=== PATIENT | male | born 1965 | race Caucasian/White ===

== ENCOUNTER 2016-02-27 23:18 | Emergency (ER) | payer OTHER ==
[~2016-02-27] VITALS: Ht 175.3 cm; Wt 63.5 kg
--- NOTE | ~2016-02-27 | EKG ---
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: [id number] : 1965 Requested By: Mor Abraham Order Number: [id number] MD: Kevin Bnauelos Measurements Intervals [place] Rate: 114 P: 25 PA: 147 QRS: -40 QRSD: 80 T: 38 QT: 299 QTc: 412 Interpretive Statements Sinus tachycardia Left axis deviation Abnormal R-wave progression, late transition ST elev, probable normal early repol pattern Electronically Signed On 02-28-2016 8:06:09 ELECTRONIC MUSICAL INSTRUMENT REPAIRER by Kevin Banuelos [email or web address] <ELECTRONICALLY SIGNED> By: Kevin Banuelos MD 02/28/16 0806 2325 24 Kevin Banuelos MD /[email or web address]
[~2016-02-27 23:18] MED LIST: ACCUNEB SO1.25 MG/1 INH; ASPIR 8181 MG PO; COZAAR 50 MG TA50 M1 PO; COZAAR 50 MG TA50 M2 PO; DETROL LA4 MG PO; FLOMAX0.4 MG PO; KEPPRA 500 MG500 M1 PO; KEPPRA1000 MG PO; LEVEMIR SUBQ; LEVOTHYROXIN0.112 M1 PO; LIPITOR 20 MG T20 M1 PO; LIPITOR10 MG PO; NEURONTIN 300300 M1 PO; NOVOLIN N100 UNIT/3 SUBQ; NOVOLOG100 UNIT/1 SUBQ; OMEPRAZOLE 20 M20 M1 PO; OMEPRAZOLE20 M2 PO; PREDNISONE 20 M20 MG PO; TESSALON PERLE100 MG PO; TOFRANIL50 MG PO
[2016-02-28] MEDS ORDERED: IMIPRAMINE HCL50 M2 PO (00:50)
[2016-02-28] MEDS ORDERED: LEVETIRACETAM1000 MG PO (00:50)
[2016-02-28] MEDS ORDERED: GLUCOPHAGE XR500 MG PO (00:50)
[2016-02-28] MEDS ORDERED: TOLTERODINE TART4 MG PO (00:50)
[2016-02-28] MEDS ORDERED: OMEPRAZOLE 20 M20 M1 PO (00:50)
[2016-02-28] MEDS ORDERED: XALATAN2.5 ML OPHTHALMIC (00:51)
[2016-02-28 00:54] LABS: APTT 27.2 Seconds (24.5-32.8); PROTIME 10.8 Seconds (9.3-11.4)
[2016-02-28 00:59] LABS: ANION GAP 9 mmol/L (7-16); BUN 21 mg/dL (7-18); CHLORIDE 101 mmol/L (98-107); CO2 31 mmol/L (21-32); CREATININE 1.3 mg/dL (0.6-1.3); GLUCOSE 118 mg/dL (70-99); POTASSIUM 4.7 mmol/L (3.5-5.1); SODIUM 141 mmol/L (136-145)
[2016-02-28 01:07] LABS: ALBUMIN 3.8 g/dL (3.4-5.0); ALKALINE PHOSPHATASE 96 U/L (46-116); MAGNESIUM 1.2 mg/dL (1.8-2.4); SGOT 26 U/L (15-37); SGPT 29 U/L (30-65); TOTAL BILIRUBIN 0.3 mg/dL (<0.1-1.0); TOTAL PROTEIN 7.6 g/dL (6.4-8.2); TROPONIN-I < 0.04 ng/mL (<0.04-0.07)
[2016-02-28 01:15] LABS: ABSOLUTE NEUTROPHILS 5.7 thou/uL (1.4-8.2); EOSINOPHILS 0.1 % (0.0-3.0); HEMOGLOBIN 14.8 gm/dL (14.0-18.0); LYMPHOCYTES 17.7 % (24.0-44.0); MCH 29.8 pg (26.0-34.0); MCHC 32.9 % (28.0-37.0); MCV 90.6 fL (80.0-100.0); MONOCYTES 7.8 % (1.0-8.0); PLATELET COUNT 162 thou/uL (150-400); POLYS 73.4 % (36.0-66.0); RBC 4.96 mil/uL (4.50-6.00); RDW 12.7 % (10.5-14.5); WBC 7.7 thou/uL (4.0-11.0)
[2016-02-28 01:31] LABS: MANUAL DIFF NO
[2016-02-28] MEDS ORDERED: ATIVAN0.5 MG PO (01:59)
[2016-02-28] MEDS ORDERED: MAG-OXIDE400 MG PO (01:59)
[2016-02-28 05:21] LABS: LARGE PLATELETS OCCASIONAL
== END 2016-02-28 04:51 | disposition home or self-care (01) ==
LOC: ER 23:18
PROVIDERS: Emergency Medicine
DX: R20.2 Paresthesia of skin (principal); F41.9 Anxiety disorder, unspecified; E83.42 Hypomagnesemia; E11.9 Type 2 diabetes mellitus without complications; E78.5 Hyperlipidemia, unspecified; Z86.73 Personal history of transient ischemic attack (TIA), and cerebral infarction without residual deficits

== ENCOUNTER 2016-07-03 16:47 | Emergency (ER) | payer OTHER ==
[~2016-07-03] VITALS: Ht 175.3 cm; Wt 63.5 kg
[~2016-07-03 16:47] MED LIST changes: +ATIVAN0.5 MG PO; +GLUCOPHAGE XR500 MG PO; +IMIPRAMINE HCL50 M2 PO; +LEVETIRACETAM1000 MG PO; +MAG-OXIDE400 MG PO; +TOLTERODINE TART4 MG PO; +XALATAN2.5 ML OPHTHALMIC
[2016-07-03 17:50] LABS: URINE BILIRUBIN NEGATIVE (Negative); URINE BLOOD NEGATIVE (Negative); URINE COLOR YELLOW; URINE GLUCOSE-RANDOM* 3+ (Negative); URINE KETONES NEGATIVE (Negative); URINE NITRITE NEGATIVE (Negative); URINE PROTEIN (DIPSTICK) NEGATIVE (Negative); URINE UROBILINOGEN 0.2 E.U./dl (0.2-1.0)
[2016-07-03 17:52] LABS: ABSOLUTE NEUTROPHILS 4.2 thou/uL (1.4-8.2); BASOPHILS 0.9 % (0.0-2.0); EOSINOPHILS 0.2 % (0.0-3.0); HEMATOCRIT 46.6 % (42.0-52.0); HEMOGLOBIN 15.8 gm/dL (14.0-18.0); LYMPHOCYTES 17.4 % (24.0-44.0); MCH 30.7 pg (26.0-34.0); MCV 90.4 fL (80.0-100.0); MONOCYTES 9.6 % (1.0-8.0); PLATELET COUNT 142 thou/uL (150-400); POLYS 71.9 % (36.0-66.0); RBC 5.16 mil/uL (4.50-6.00); RDW 12.6 % (10.5-14.5); WBC 5.9 thou/uL (4.0-11.0)
[2016-07-03 17:54] LABS: MANUAL DIFF NO
[2016-07-03 18:07] LABS: ALBUMIN 4.4 g/dL (3.4-5.0); CALCIUM 9.7 mg/dL (8.5-10.1); CREATININE 1.6 mg/dL (0.7-1.3); TOTAL BILIRUBIN 0.5 mg/dL (<0.1-1.0); TOTAL PROTEIN 8.4 g/dL (6.4-8.2)
== END 2016-07-03 20:34 | disposition home or self-care (01) ==
LOC: ER 16:47
PROVIDERS: Nurse Practitioner Family
DX: E11.65 Type 2 diabetes mellitus with hyperglycemia (principal); E78.00 Pure hypercholesterolemia, unspecified; Z86.73 Personal history of transient ischemic attack (TIA), and cerebral infarction without residual deficits

== ENCOUNTER 2016-11-16 13:51 | Emergency (ER) | payer OTHER ==
[~2016-11-16] VITALS: Ht 175.3 cm; Wt 63.5 kg
[2016-11-16 14:22] LABS: ABSOLUTE NEUTROPHILS 5.9 thou/uL (1.4-8.2); BASOPHILS 1.2 % (0.0-2.0); EOSINOPHILS 1.1 % (0.0-3.0); HEMATOCRIT 44.3 % (42.0-52.0); HEMOGLOBIN 15.2 gm/dL (14.0-18.0); LYMPHOCYTES 21.6 % (24.0-44.0); MCH 30.2 pg (26.0-34.0); MCHC 34.4 g/dL (28.0-37.0); MCV 87.8 fL (80.0-100.0); MONOCYTES 7.2 % (1.0-8.0); PLATELET COUNT 158 thou/uL (150-400); POLYS 68.9 % (36.0-66.0); RBC 5.05 mil/uL (4.50-6.00); WBC 8.5 thou/uL (4.0-11.0)
[2016-11-16 14:23] LABS: MANUAL DIFF NO
[2016-11-16 14:26] LABS: CALCIUM 10.9 mg/dL (8.5-10.1); CREATININE 1.4 mg/dL (0.7-1.3); POTASSIUM 4.2 mmol/L (3.5-5.1)
[2016-11-16 14:32] LABS: ALBUMIN 4.6 g/dL (3.4-5.0); TOTAL BILIRUBIN 0.3 mg/dL (<0.1-1.0); TOTAL PROTEIN 8.2 g/dL (6.4-8.2)
[2016-11-16] MEDS ORDERED: ZOFRAN ODT4 M1 PO (15:47)
[2016-11-16] MEDS ORDERED: MOBIC15 MG PO (15:47)
== END 2016-11-16 16:15 | disposition home or self-care (01) ==
LOC: ER 13:51
PROVIDERS: Physician Assistant
DX: E11.65 Type 2 diabetes mellitus with hyperglycemia (principal); E78.00 Pure hypercholesterolemia, unspecified; Z86.73 Personal history of transient ischemic attack (TIA), and cerebral infarction without residual deficits; W18.39XA Other fall on same level, initial encounter; Y93.89 Activity, other specified; Y92.89 Other specified places as the place of occurrence of the external cause; Y99.8 Other external cause status

== ENCOUNTER 2017-09-01 19:33 | Emergency (ER) | payer OTHER ==
[~2017-09-01] VITALS: Ht 177.8 cm; Wt 63.5 kg
[~2017-09-01 19:33] MED LIST changes: +MOBIC15 MG PO; +ZOFRAN ODT4 M1 PO
[2017-09-01 20:12] LABS: URINE BILIRUBIN NEGATIVE (Negative); URINE BLOOD NEGATIVE (Negative); URINE CLARITY CLEAR; URINE COLOR YELLOW; URINE GLUCOSE-RANDOM* NEGATIVE (Negative); URINE KETONES NEGATIVE (Negative); URINE LEUKOCYTES NEGATIVE (Negative); URINE NITRITE NEGATIVE (Negative); URINE PROTEIN (DIPSTICK) NEGATIVE (Negative); URINE UROBILINOGEN 0.2 E.U./dl (0.2-1.0)
[2017-09-01 21:02] LABS: HEMOGLOBIN 14.9 gm/dL (14.0-18.0); MCH 31.2 pg (26.0-34.0); MCHC 33.8 g/dL (28.0-37.0); MCV 92.2 fL (80.0-100.0); RBC 4.77 mil/uL (4.50-6.00); RDW 12.6 % (10.5-14.5); WBC 10.7 thou/uL (4.0-11.0)
[2017-09-01 21:07] LABS: CALCIUM 9.4 mg/dL (8.5-10.1); CREATININE 1.2 mg/dL (0.7-1.3); POTASSIUM 5.5 mmol/L (3.5-5.1)
== END 2017-09-01 21:36 | disposition home or self-care (01) ==
LOC: ER 19:33
PROVIDERS: Student in an Organized Health Care Education/Training Program
DX: E11.649 Type 2 diabetes mellitus with hypoglycemia without coma (principal); Z91.14 Patient's other noncompliance with medication regimen; E78.00 Pure hypercholesterolemia, unspecified; E07.9 Disorder of thyroid, unspecified; Z86.73 Personal history of transient ischemic attack (TIA), and cerebral infarction without residual deficits

== ENCOUNTER 2017-11-15 23:21 | Emergency (ER) | payer OTHER ==
[~2017-11-15] VITALS: Ht 177.8 cm; Wt 70.3 kg
== END 2017-11-16 00:15 | disposition home or self-care (01) ==
LOC: ER 23:21
DX: Z00.00 Encounter for general adult medical examination without abnormal findings (principal); E11.9 Type 2 diabetes mellitus without complications; E78.00 Pure hypercholesterolemia, unspecified; Z86.73 Personal history of transient ischemic attack (TIA), and cerebral infarction without residual deficits; Z79.4 Long term (current) use of insulin